=== PATIENT | female | born 1940 | race Caucasian/White ===

== ENCOUNTER 2016-07-15 08:28 | Emergency (ER) | payer OTHER ==
[2016-07-15 08:41] VITALS: RESP 16; TEMP 96.4
--- NOTE | 2016-07-15 09:38 | EDPHY ---
H & P Stated Complaint: TROUBLE SWALLOWING PILL. DIFF BREATHING AND SWALLOWING - Personal History Current Tetanus/Diphtheria Vaccine: Yes Current Tetanus Diphtheria and Acellular Pertussis (TDAP): Unsure - Medical/Surgical History Hx Asthma: No Hx Chronic Respiratory Disease: No Hx Diabetes: No Hx Cardiac Disease: No Hx Renal Disease: No Hx Cirrhosis: No Hx Alcoholism: No Hx HIV/AIDS: No Hx Splenectomy or Spleen Trauma: No Other PMH: PMH: IRREG HEART BEAT,HYPOTHYROID - Social History Smoking Status: Never smoked HPI/ROS: CHIEF COMPLAINT: Possible aspiration of pill, cough HISTORY OF PRESENT ILLNESS: within the past hour prior to arrival, the patient was taken her morning medications. She said while taking her daily multivitamin she may have aspirated this. She feels pain in her throat as well as a cough. She has no difficulty breathing. There is no drooling. She has no chest pain. No shortness of breath. She does feels discomfort in the throat and is repeatedly coughing. She is certain that it was only a multivitamin and no other of her pills. Symptoms have been constant since onset. No worsening or improvement.No other associated complaints or modifying factors. REVIEW OF SYSTEMS: Ten systems reviewed and are negative unless otherwise noted in the HPI EXAMINATION General Appearance: Alert, no distress Head: normocephalic, atraumatic Eyes: Pupils equal and round, no conjunctival pallor or injection ENT, Mouth: Mucous membranes moist Neck: Normal inspection, supple, non-tender Respiratory: Lungs are clear to auscultation. No distress or retractions. Cardiovascular: Regular rate and rhythm Gastrointestinal: Abdomen is soft and nontender Back: non-tender, no bony abnormalities Neurological: A&O, nonfocal, normal gait Skin: Warm and dry, no rash Extremities: Nontender, no pedal edema Psychiatric: Mood and affect normal DIFFERENTIAL DIAGNOSES: 1. pill aspiration 2. pill esophagitis 3. aspiration 4. cough MDM: 09:30 reported accidental aspiration of a multivitamin pill. She is in no acute distress. Vital signs are well within normal limits. Lungs are clear in all orantes. His only been 1 hour since the incident. X-rays have been ordered of the chest and neck soft tissue. Continue to monitor. 10:35 X-rays appear unremarkable. The patient remains hemodynamically stable with normal vital signs and oxygenation. She does have a mild cough, but no infective signs or symptoms. She does not appear to have any aspiration. Discharged home with symptomatic care, and instructions to return to the emergency department should her symptoms worsen or she not improve by tomorrow morning. Patient and her friend at bedside are comfortable with this plan. SUPERVISION: This patient was independently evaluated without the aide of supervising physician. (Rodrigo Black) Constitutional: Initial Vital Signs Temperature (C) 35.8 C L 07/15/16 08:30 Heart Rate 70 07/15/16 08:30 Respiratory Rate 16 07/15/16 08:30 Blood Pressure 160/87 H 07/15/16 08:30 O2 Sat (%) 92 07/15/16 08:30 O2 Delivery Mode Room Air Allergies/Adverse Reactions: Penicillins Allergy (Verified 07/15/16 17:53) Home Medications: Medication Instructions Recorded Atenolol Unk Dose 07/15/16 Clonazepam Unk Dose 07/15/16 Levothyroxine Unk Dose 07/15/16 Mirtazapine Unk Dose 07/15/16 Medical Decision Making Other Provider: The patient was evaluated and managed by the physician cosmetic sales assistant. I have reviewed this chart and I agree with the findings and plan of care as documented , as indicated by my signature. I am the secondary supervising physician. ( Cayla Roman) Departure - Departure Disposition: Home, Routine, Self-Care Clinical Impression: Esophagitis Condition: Good Instructions: Esophagitis (ED) Additional Instructions: Follow-up with primary care physician. Return to the emergency department if symptoms worsen or persist beyond tomorrow morning. Return to the emergency department for fever, chills, shortness of breath. Referrals: TERRY COLINDRES [Primary Care Provider] - As per Instructions
--- NOTE | 2016-07-15 10:06 | DX ---
PA and Lateral Chest July 15, 2016 History: Possible aspiration of multivitamin, cough. Comparison: Soft tissue neck same day. Findings: The lungs are hyperexpanded with mild peribronchial thickening without focal consolidation. There is no pneumothorax or pleural effusion. The heart and pulmonary vasculature are normal. Mild d egenerative change is present in the spine. No radiopaque foreign object is identified. Impression: 1. No radiopaque foreign object identified. 2. Mild peribronchial thickening suggesting airways disease/bronchitis.
--- NOTE | 2016-07-15 10:15 | DX ---
AP and Lateral Soft Tissue Neck History: Possible aspiration of multivitamin. Comparison: None available. Findings: No definite radiopaque foreign object is identified. Cartilaginous versus less likely carot id artery calcifications are noted bilaterally at the level of C5-C6, most conspicuous on the lateral view. Degenerative change is present in the spine with 3 mm of retrolisthesis of C4 on C5 with multi level mild vertebral and moderate uncovertebral spondylosis. Moderate facet hypertrophy is present in the lower cervical spine. Impression: No radiopaque foreign object notified.
[2016-07-15 10:59] VITALS: BP 138/68; PULSE 57; O2SAT 95
== END 2016-07-15 10:58 | disposition home or self-care (01) ==
DX: K20.9 Esophagitis, unspecified (principal)

== ENCOUNTER 2016-07-15 17:50 | Emergency (ER) | payer OTHER ==
[2016-07-15 17:57] VITALS: BP 119/67; PULSE 95
--- NOTE | 2016-07-15 18:08 | EDPHY ---
H & P Time Seen by Provider: 07/15/16 18:05 HPI/ROS: Chief complaint. Aspirated pill HPI. 75-year-old female seen earlier today after having sensation that she aspirated a vitamin pill. Her workup was normal. She returns feeling nauseated and having sense of fever and cough. She had chills today unsure about fever. She says she was unable to get warm. Has a nonproductive cough especially earlier today better now. She thinks she vomited up part of a pill. She has had nausea. She has mild upper epigastric pain. Otherwise no known exposures. ROS Constitutional. Possible fever with chills Eyes. no problems with vision ENT. no sore throat, no nasal drainage Cardiovascular. no chest pain Respiratory. Cough without shortness of breath Abdominal. Upper abdominal pain without vomiting but with nausea . no problems urinating MS. no calf pain/swelling, no neck/back pain, no joint pain Skin. no rash Lymph. no swollen glands Neuro. no headache, no dizziness, no difficulty walking or with speech Past Medical/Surgical History: Past medical history significant hypothyroid, irregular heartbeat Social History: Single, nonsmoker, no alcohol Smoking Status: Never smoked Physical Exam: General Appearance: Alert well-developed female temp 37.4degrees otherwise stable vital signs Eyes: Pupils equal and round no pallor or injection. ENT, Mouth: Mucous membranes are moist. Respiratory: There are no retractions, lungs are clear to auscultation. Cardiovascular: Regular rate and rhythm. Gastrointestinal: Mild tenderness in the epigastrium Neurological: Awake and alert, sensory and motor exams grossly normal. Skin: Warm and dry, no rashes. Musculoskeletal: Neck is supple nontender. Extremities symmetrical, full range of motion. Psychiatric: Patient is oriented X 3, there is no agitation. Constitutional: Initial Vital Signs Temperature (C) 37.4 C 07/15/16 17:54 Heart Rate 95 07/15/16 17:54 Respiratory Rate 16 07/15/16 17:54 Blood Pressure 119/67 07/15/16 17:54 O2 Sat (%) 94 07/15/16 17:54 O2 Delivery Mode Room Air Allergies/Adverse Reactions: Penicillins Allergy (Verified 07/15/16 17:53) Home Medications: Medication Instructions Recorded Atenolol Unk Dose 07/15/16 Clonazepam Unk Dose 07/15/16 Levothyroxine Unk Dose 07/15/16 Mirtazapine Unk Dose 07/15/16 Medical Decision Making - Diagnostics Imaging: Chest x-ray interpreted by me as negative for pneumonia Procedures: IV normal saline. DuoNeb updraft. ED Course/Re-evaluation: Re-evaluation 7:05 p.m. after the DuoNeb updraft. Patient says she feels so much better. She is conversational. She is not short of breath. She is not coughing. She has been given Zofran she is no longer nauseated. The patient looks well. She has stable vital signs. She has an elevated white blood cell count I can't really explain. The patient and I discussed treatment plan including criteria for return and importance of follow-up and further evaluation they expressed understanding and agreement The patient has a preop appointment tomorrow with [facility] for a mastectomy in about a week. I spoke with [facility] RAMOS and they will put this information of labs and chest x-ray information into the computer for the patient be re- evaluated tomorrow. Differential Diagnosis: I considered aspiration, pneumonia, urinary tract symptoms. The patient tells me she has no urinary symptoms whatsoever. She has stable vital signs. - Data Points Laboratory Results: Laboratory Results 07/15/16 18:22 07/15/16 18:22 07/15/16 18:22 WBC 19.77 H 10^3/uL (3.80-9.50) RBC 4.69 10^6/uL (4.18-5.33) Hgb 15.0 g/dL (12.6-16.3) Hct 41.7 % (38.0-47.0) MCV 88.9 fL (81.5-99.8) MCH 32.0 pg (27.9-34.1) MCHC 36.0 g/dL (32.4-36.7) RDW 12.1 % (11.5-15.2) Plt Count 208 10^3/uL (150-400) MPV 10.3 fL (8.7-11.7) Neut % (Auto) 87.4 H % (39.3-74.2) Lymph % (Auto) 7.8 L % (15.0-45.0) [place] % (Auto) 4.0 L % (4.5-13.0) Eos % (Auto) 0.1 L % (0.6-7.6) Baso % (Auto) 0.2 L % (0.3-1.7) Nucleat RBC Rel Count 0.0 % (0.0-0.2) Absolute Neuts (auto) 17.30 H 10^3/uL (1.70-6.50) Absolute Lymphs (auto) 1.54 10^3/uL (1.00-3.00) Absolute Monos (auto) 0.79 10^3/uL (0.30-0.80) Absolute Eos (auto) 0.01 L 10^3/uL (0.03-0.40) Absolute Basos (auto) 0.04 10^3/uL (0.02-0.10) Absolute Nucleated RBC 0.00 10^3/uL (0-0.01) Immature Gran % 0.5 % (0.0-1.1) Immature Gran # 0.09 10^3/uL (0.00-0.10) Sodium 133 L mEq/L (134-144) Potassium 4.1 mEq/L (3.5-5.2) Chloride 98 mEq/L (97-110) Carbon Dioxide 23 mEq/l (22-31) Anion Gap 12 mEq/L (8-16) BUN 13 mg/dL (7-23) Creatinine 0.9 mg/dL (0.6-1.0) Estimated GFR > 60 Glucose 123 H mg/dL (70-100) Calcium 9.3 mg/dL (8.5-10.4) Lipase 101.0 IU/L (23-300) Influenza Typ A,B (DFA) NEGATIVE FOR FLU (NEGATIVE) Medications Given: Discontinued Medications Albuterol/Ipratropium (Duoneb) 3 ml IH EDNOW ONE Stop: 07/15/16 18:29 Last Admin: 07/15/16 19:31 Dose: 3 ml Ondansetron HCl (Zofran) 4 mg IVP EDNOW ONE Stop: 07/15/16 18:17 Last Admin: 07/15/16 18:24 Dose: 4 mg Departure - Departure Disposition: Home, Routine, Self-Care Clinical Impression: Upper respiratory tract infection Qualifiers: URI type: unspecified viral URI Qualifier Code: (J06.9) Acute upper respiratory infection, unspecified Condition: Good Instructions: Upper Respiratory Infection (ED) Additional Instructions: Vaporizer. Rest. Drink plenty of fluids. Return tonight for worsening breathing or coughing. Keep your appointment with [facility] tomorrow. I called [facility] and discussed x-ray and laboratory findings with them. They will follow up in re-evaluated you tomorrow at your appointment [place]errals: [place],. [Primary Care Provider] - As per Instructions [facility] [Outside] - As per Instructions
[2016-07-15] MEDS ORDERED: ONDANSETRON 4 MG/2 ML VIAL IVP ONE (18:16)
[2016-07-15] MEDS ORDERED: ONDANSETRON 4 MG/2 ML VIAL ONE (18:17)
[2016-07-15] MEDS ORDERED: IPRATROPIUM/ALBUTEROL 3 ML DEYVIAL IH ONE (18:28)
[2016-07-15 18:35] LABS: % IMMATURE GRANULYOCYTES 0.5 % (0.0-1.1); ABSOLUTE IMMATURE GRANULOCYTES 0.09 10^3/uL (0.00-0.10); ADD DIFF? NO; ADD MORPH? NO; ADD SCAN? NO; ATYPICAL LYMPHOCYTE FLAG 0 (0-99); FRAGMENT RBC FLAG 0 (0-99); HEMATOCRIT 41.7 % (38.0-47.0); LEFT SHIFT FLG 0 (0-99); LIPEMIA HEMOLYSIS FLAG 90 (0-99); MEAN CELL VOLUME 88.9 fL (81.5-99.8); MEAN PLATELET VOLUME 10.3 fL (8.7-11.7); PLATELET CLUMPS FLAG 0 (0-99); PLATELET COUNT 208 10^3/uL (150-400); RED BLOOD CELL COUNT 4.69 10^6/uL (4.18-5.33); RED CELL DISTRIBUTION WIDTH 12.1 % (11.5-15.2)
[2016-07-15 18:57] LABS: ANION GAP 12 mEq/L (8-16); CALCIUM 9.3 mg/dL (8.5-10.4); CARBON DIOXIDE 23 mEq/l (22-31); CHLORIDE 98 mEq/L (97-110); CREATININE 0.9 mg/dL (0.6-1.0); GLOMERULAR FILTRATION RATE > 60; GLUCOSE 123 mg/dL (70-100); POTASSIUM 4.1 mEq/L (3.5-5.2); SODIUM 133 mEq/L (134-144)
--- NOTE | 2016-07-15 19:11 | DX ---
PA and Lateral Chest - July 15, 2016 Clinical Indications: Possible aspiration. Comparison: July 15, 2016 at 0854 hours. Findings: The lungs are clear, and no masses are found. The heart and pulmonary vessels are normal. There are no pleural effusions and no pneumothorax. The bones are unremarkable for this age. Impression: 1. No radiopaque object identified. 2. No acute cardiopulmonary process.
[2016-07-15 20:12] VITALS: RESP 20; TEMP 98.6; O2SAT 97
== END 2016-07-15 20:12 | disposition home or self-care (01) ==
DX: J06.9 Acute upper respiratory infection, unspecified (principal)
CPT/HCPCS: 96374; J2405